=== PATIENT | male | born 1950 | race Caucasian/White ===

== ENCOUNTER 2017-01-24 23:12 | Inpatient (IN) | payer OTHER ==
[~2017-01-24] VITALS: Ht 175.3 cm; Wt 107.2 kg
[2017-01-24 23:51] LABS: BASO % 0.3 %; BASO ABS # 0.03 K/uL (0-0.2); COMPLETE YES; EOS % 5.6 %; HEMATOCRIT 41.9 % (42-52); IG% 0.4 %; LYMPH % 17.5 %; LYMPH ABS # 1.76 K/uL (1.2-3.4); MEAN CELL VOLUME 86.7 fL (80-100); MEAN CORPUSCULAR HGB CONC 33.4 g/dl (32-36); MONO % 7.3 %; NEUT % 68.9 %; PLATELET COUNT 208 K/uL (130-400); RED BLOOD COUNT 4.83 M/uL (4.7-6.1); WHITE BLOOD COUNT 10.05 K/uL (4.8-10.8)
[2017-01-25] MEDS ORDERED: ASPIRIN 81 MG CHEW PO STA (00:07)
[2017-01-25 00:09] LABS: ALT/SGPT 54 U/L (12-78); BLOOD UREA NITROGEN 24 mg/dl (7-18); BUN/CREATININE RATIO 16.3 (10-20); CALCIUM 9.2 mg/dl (8.5-10.1); CARBON DIOXIDE 28 mmol/L (21-32); CHLORIDE 103 mmol/L (98-107); GLUCOSE 204 mg/dl (70-99); MAGNESIUM 1.9 mg/dl (1.8-2.4); POTASSIUM 3.7 mmol/L (3.5-5.1); SODIUM 138 mmol/L (136-145)
[2017-01-25 00:12] LABS: ALKALINE PHOSPHATASE 70 U/L (45-117); AST/SGOT 34 U/L (15-37); CKMB/CK RATIO 1.2 (0-3.0)
[2017-01-25] MEDS ORDERED: SITA50TA5 PO (01:07)
[2017-01-25] MEDS ORDERED: NTRGSL/4 UT (01:08)
[2017-01-25] MEDS ORDERED: LEVO50TA6 PO (01:09)
--- NOTE | 2017-01-25 01:09 | EMERGENCY ROOM VISIT NOTE ---
ED Visit Note First contact with patient: 23:33 Agree with viv, likely CVA, not tpa candidate at this time; asa given; [facility] Current/Historical Medications Scheduled Sitagliptin-Metformin Hcl (Janumet), 50-500 MG PO DAILY Vital Signs Date Time Temp Pulse Resp B/P (MAP) Pulse Ox O2 Delivery O2 Flow Rate FiO2 01/25/17 00:05 95 Room Air 01/24/17 23:45 71 01/24/17 23:19 36.8 80 22 136/78 94 Room Air Laboratory Results 01/24/17 23:37 Red Blood Count 4.83, Mean Corpuscular Volume 86.7, Mean Corpuscular Hemoglobin 29.0, Mean Corpuscular Hemoglobin Concent 33.4, Mean Platelet Volume 12.0, Neutrophils (%) (Auto) 68.9, Lymphocytes (%) (Auto) 17.5, Monocytes (%) (Auto) 7.3, Eosinophils (%) (Auto) 5.6, Basophils (%) (Auto) 0.3, Neutrophils # (Auto) 6.93, Lymphocytes # (Auto) 1.76, Monocytes # (Auto) 0.73, Eosinophils # (Auto) 0.56, Basophils # (Auto) 0.03 01/24/17 23:37 Test 01/24/17 23:37 White Blood Count 10.05 K/uL (4.8-10.8) Red Blood Count 4.83 M/uL (4.7-6.1) Hemoglobin 14.0 g/dL (14.0-18.0) Hematocrit 41.9 % (42-52) Mean Corpuscular Volume 86.7 fL (80-100) Mean Corpuscular Hemoglobin 29.0 pg (25-34) Mean Corpuscular Hemoglobin Concent 33.4 g/dl (32-36) Platelet Count 208 K/uL (130-400) Mean Platelet Volume 12.0 fL (7.4-10.4) Neutrophils (%) (Auto) 68.9 % Lymphocytes (%) (Auto) 17.5 % Monocytes (%) (Auto) 7.3 % Eosinophils (%) (Auto) 5.6 % Basophils (%) (Auto) 0.3 % Neutrophils # (Auto) 6.93 K/uL (1.4-6.5) Lymphocytes # (Auto) 1.76 K/uL (1.2-3.4) Monocytes # (Auto) 0.73 K/uL (0.11-0.59) Eosinophils # (Auto) 0.56 K/uL (0-0.5) Basophils # (Auto) 0.03 K/uL (0-0.2) RDW Standard Deviation 42.8 fL (36.4-46.3) RDW Coefficient of Variation 13.5 % (11.5-14.5) Immature Granulocyte % (Auto) 0.4 % Immature Granulocyte # (Auto) 0.04 K/uL (0.00-0.02) Anion Gap 7.0 mmol/L (3-11) Est Creatinine Clear Calc Drug Dose 60.1 ml/min Estimated GFR () 55.8 Estimated GFR (Non- 48.2 BUN/Creatinine Ratio 16.3 (10-20) Calcium Level 9.2 mg/dl (8.5-10.1) Magnesium Level 1.9 mg/dl (1.8-2.4) Total Bilirubin 0.3 mg/dl (0.2-1) Direct Bilirubin < 0.1 mg/dl (0-0.2) Aspartate Amino Transf (AST/SGOT) 34 U/L (15-37) Alanine Aminotransferase (ALT/SGPT) 54 U/L (12-78) Alkaline Phosphatase 70 U/L (45-117) Total Creatine Kinase 115 U/L (39-308) Creatine Kinase MB 1.4 ng/ml (0.5-3.6) Creatine Kinase MB Ratio 1.2 (0-3.0) Troponin I < 0.015 ng/ml (0-0.045) Total Protein 7.3 gm/dl (6.4-8.2) Albumin 3.5 gm/dl (3.4-5.0) Lipase 386 U/L (73-393) Medications Administered Medications (Trade) Dose Ordered Sig/Elli Route Start Time Stop Time Status Last Admin Dose Admin Aspirin (Aspirin Chew) 324 mg NOW STAT PO 01/25/17 00:07 01/25/17 00:08 DC 01/25/17 00:36 324 MG Departure Information Referrals No Doctor, Assigned (PCP) Patient Instructions My [facility]
[2017-01-25] MEDS ORDERED: LITH300T2 PO (01:10)
[2017-01-25] MEDS ORDERED: SERT-234 PO (01:12)
[2017-01-25] MEDS ORDERED: [UNRECOGNIZED DRUG - CODE] PO (01:13)
[2017-01-25] MEDS ORDERED: ALPR0.25 PO (01:15)
[2017-01-25] MEDS ORDERED: MOME6000 NAE (01:16)
[2017-01-25] MEDS ORDERED: TPRSR/25 PO (01:17)
--- NOTE | 2017-01-25 01:40 | EMERGENCY ROOM VISIT NOTE ---
History First contact with patient: 23:33 Chief Complaint: NEURO SYMPTOMS Stated Complaint: NUMBNESS ARM/WRIST/FINGERS, HISTORY OF A FIB History of Present Illness The patient is a 66 year old male who presents to the Emergency Room with complaints of left-sided facial tingling and left arm tingling for the past 3 days steadily getting worse. Patient states in the past month she's had intermittent episodes of his A. fib is not currently on anticoagulation as in the ablation within the past year. Patient is unsure exactly when he had his ablation. He follows with cardiology back in [place]. He is here for the football game. Patient states he's had some intermittent chest pain over the past month. Nothing today. Patient denies localized weakness, dyspnea, abdominal pain, leg pain or swelling, dysarthria. No history of CVA in the past. No history of heart failure in the past. Review of Systems See HPI for pertinent positives & negatives. A total of 10 systems reviewed and were otherwise negative. Past Medical/Surgical History A. fib, HTN, DM2, HLP, Mood Disorder Social History Smoking Status: Never Smoker Smokeless Tobacco Use: No Drug Use: none Current/Historical Medications Scheduled Levothyroxine Sodium (Levothyroxine Sodium), 50 MCG PO DAILY Bergen Carbonate (Bergen Carbonate), 300 MG PO BID Nitroglycerin (Nitrostat), 0.4 MG UT PRN Sertraline (Zoloft), 150 MG PO DAILY Sitagliptin-Metformin Hcl (Janumet), 50-500 MG PO DAILY Scheduled PRN Diltiazem Hcl Coated Beads (Matzim La), 180 MG PO DAILY PRN for A FIB Physical Exam Vital Signs Date Time Temp Pulse Resp B/P (MAP) Pulse Ox O2 Delivery O2 Flow Rate FiO2 01/25/17 00:05 95 Room Air 01/24/17 23:45 71 01/24/17 23:19 36.8 80 22 136/78 94 Room Air Physical Exam VITALS: Vitals are noted on the nurse's note and reviewed by myself. Vital signs stable. GENERAL: White male following commands without difficulties, in no acute distress, nondiaphoretic, well-developed well-nourished. SKIN: The skin was without rashes, erythema, edema, or bruising. There is no tenting of the skin. Capillary reflex less than 2 seconds. HEAD: Normocephalic atraumatic. EARS: External auditory canals clear, tympanic membranes pearly moran without erythema or effusion bilaterally. EYES: Pupils equal round and reactive to light and accommodation. Conjunctivae without injection, sclerae without icterus. Extraocular movements intact. NOSE: Patent, turbinates without inflammation or discharge. MOUTH: Mucous membranes moist. Pharynx without erythema or exudate. Uvula midline. Airway patent. Tongue does not deviate. NECK: Supple without nuchal rigidity. No lymphadenopathy. No thyromegaly. Cervical spine is nontender. No JVD. HEART: Regular rate and rhythm without murmurs gallops or rubs. LUNGS: Clear to auscultation bilaterally without wheezes, rales or rhonchi. No dullness to percussion. No retractions or accessory muscle use. ABDOMEN: Positive bowel sounds x 4. Normal tympanic percussion. Soft, nontender, without masses or organomegaly. Winn sign negative. No guarding or rebound tenderness. MUSCULOSKELETAL: No muscle atrophy, erythema, or edema noted. NEURO: Patient was alert and oriented to person place and time. Normal sensation to light and sharp touch. No focal neurological deficits. Cranial nerves II through XII grossly intact. No pronator drift. Cerebellar exam intact Medical Decision & Procedures Laboratory Results 01/24/17 23:37 Red Blood Count 4.83, Mean Corpuscular Volume 86.7, Mean Corpuscular Hemoglobin 29.0, Mean Corpuscular Hemoglobin Concent 33.4, Mean Platelet Volume 12.0, Neutrophils (%) (Auto) 68.9, Lymphocytes (%) (Auto) 17.5, Monocytes (%) (Auto) 7.3, Eosinophils (%) (Auto) 5.6, Basophils (%) (Auto) 0.3, Neutrophils # (Auto) 6.93, Lymphocytes # (Auto) 1.76, Monocytes # (Auto) 0.73, Eosinophils # (Auto) 0.56, Basophils # (Auto) 0.03 01/24/17 23:37 Test 01/24/17 23:37 White Blood Count 10.05 K/uL (4.8-10.8) Red Blood Count 4.83 M/uL (4.7-6.1) Hemoglobin 14.0 g/dL (14.0-18.0) Hematocrit 41.9 % (42-52) Mean Corpuscular Volume 86.7 fL (80-100) Mean Corpuscular Hemoglobin 29.0 pg (25-34) Mean Corpuscular Hemoglobin Concent 33.4 g/dl (32-36) Platelet Count 208 K/uL (130-400) Mean Platelet Volume 12.0 fL (7.4-10.4) Neutrophils (%) (Auto) 68.9 % Lymphocytes (%) (Auto) 17.5 % Monocytes (%) (Auto) 7.3 % Eosinophils (%) (Auto) 5.6 % Basophils (%) (Auto) 0.3 % Neutrophils # (Auto) 6.93 K/uL (1.4-6.5) Lymphocytes # (Auto) 1.76 K/uL (1.2-3.4) Monocytes # (Auto) 0.73 K/uL (0.11-0.59) Eosinophils # (Auto) 0.56 K/uL (0-0.5) Basophils # (Auto) 0.03 K/uL (0-0.2) RDW Standard Deviation 42.8 fL (36.4-46.3) RDW Coefficient of Variation 13.5 % (11.5-14.5) Immature Granulocyte % (Auto) 0.4 % Immature Granulocyte # (Auto) 0.04 K/uL (0.00-0.02) Anion Gap 7.0 mmol/L (3-11) Est Creatinine Clear Calc Drug Dose 60.1 ml/min Estimated GFR () 55.8 Estimated GFR (Non- 48.2 BUN/Creatinine Ratio 16.3 (10-20) Calcium Level 9.2 mg/dl (8.5-10.1) Magnesium Level 1.9 mg/dl (1.8-2.4) Total Bilirubin 0.3 mg/dl (0.2-1) Direct Bilirubin < 0.1 mg/dl (0-0.2) Aspartate Amino Transf (AST/SGOT) 34 U/L (15-37) Alanine Aminotransferase (ALT/SGPT) 54 U/L (12-78) Alkaline Phosphatase 70 U/L (45-117) Total Creatine Kinase 115 U/L (39-308) Creatine Kinase MB 1.4 ng/ml (0.5-3.6) Creatine Kinase MB Ratio 1.2 (0-3.0) Troponin I < 0.015 ng/ml (0-0.045) Total Protein 7.3 gm/dl (6.4-8.2) Albumin 3.5 gm/dl (3.4-5.0) Lipase 386 U/L (73-393) Medications Administered Medications (Trade) Dose Ordered Sig/Elli Route Start Time Stop Time Status Last Admin Dose Admin Aspirin (Aspirin Chew) 324 mg NOW STAT PO 01/25/17 00:07 01/25/17 00:08 DC 01/25/17 00:36 324 MG ED Course Prior records/ancillary studies reviewed. Triage Nursing notes reviewed. Additional history obtained from friend The patient's history was concerning for left arm tingling and facial tingling Differential diagnosis: Etiologies such as CVA, electrolyte abnormality, neuropathy, cardiac ischemia, aortic dissection, pulmonary embolism, pneumonia, pneumothorax, musculoskeletal , infections, pericarditis, myocarditis, esophageal rupture, gastrointestinal, as well as others were entertained. Physical examination: As above. ER treatment provided: Aspirin On reassessment the patient felt better. Diagnostic interpretation by me: The electrocardiogram was normal sinus, normal intervals, ST depression in the anterolateral leads, rate 68. Impression normal sinus rhythm with ST depression in the anterolateral leads interpreted by myself. The labs revealed negative troponin. Creatinine 1.5. Hyperglycemia without DKA Imaging studies: Chest x-ray as above CT HEAD: No intracranial hemorrhage. Ischemic focus in the right thalamus of uncertain chronicity. MRI can further assess as warranted. Involutional changes. Mild sinus mucosal thickening and debris Radiologist: Smooth Newell M.D. Consultation: A consultation was placed with the hospitalist, Dr. Ridley's resident. The case was discussed and diagnostics were reviewed. The patient was evaluated in the ER for further treatment. Exam and history are concerning for possible CVA and abnormal EKG. Patient was started on aspirin. He will be evaluated by medicine. He was currently neurovascularly and neurologically intact. His NIH score is 0. His symptoms have been greater than 3 days. He is not a candidate for current treatment. I did attempt to obtain the patient's records from his hospital back in [facility] with no success. The executive legal secretary left a message on the answering machine with medical records. Patient is agreeable to treatment plan of admission. By the evaluation outlined above emergent etiologies such as aortic dissection , pulmonary embolism, pneumonia, pneumothorax, infections, pericarditis, myocarditis, gastrointestinal, as well as others were deemed relatively unlikely. The pt informed about the findings as listed above. All questions were answered and pleased with the treatment. Case reviewed with my attending who also saw this patient. Medical Decision as above Head Trauma GCS Score: 15 Medication Reconcilliation Current Medication List: was personally reviewed by me Blood Pressure Screening Patient's blood pressure: Normal blood pressure Impression Primary Impression: CVA (cerebral vascular accident) Additional Impressions: Abnormal EKG Tingling Departure Information Dispostion Being Evaluated By Hospitalist Condition FAIR Referrals No Doctor, Assigned (PCP) Patient Instructions My [facility] Time Last Known Well patient symptoms have been ongoing for greater than 3 days. Stroke t-PA Criteria Reviewed Does NOT meet criteria for t-PA Reason t-PA Not Given Treatment not indicated Strict Exclusion Criteria Normal neurologic examination Problem Qualifiers Primary Impression: CVA (cerebral vascular accident) CVA mechanism: unspecified Qualified Codes: I63.9 - Cerebral infarction, unspecified
[2017-01-25] MEDS ORDERED: ACETAMINOPHEN 325 MG TAB PO PRN (01:45)
[2017-01-25] MEDS ORDERED: ONDANSETRON INJ 2 MG/ML 2 ML VIAL IV PRN (01:45)
[2017-01-25] MEDS ORDERED: POLYETHYLENE (MIRALAX) 17 GM PACK PO PRN (01:45)
[2017-01-25] MEDS ORDERED: PHARMACIST DISCHARGE MED REC CONSULT PRN (01:45)
--- NOTE | 2017-01-25 02:00 | History and Physical ---
History & Physical Date & Time of Service: Jan 25, 2017 at 01:55 Chief Complaint: Numbness Arm/Wrist/Fingers, History Of A Fib Primary Care Physician: No Doctor, Assigned History of Present Illness Source: patient, hospital records 66-year-old male who is from [place] currently visiting [place] for the football game this weekend presented to the ER with complaints of left- sided numbness which started about 3 days ago. The patient has a history of coronary artery disease status post cardiac catheterization with no stents, atrial fibrillation status post ablation, bipolar disorder, hypertension, diabetes, depression but he had not been taking any of his medications for the last few months. He stated that 3 days ago he noted numbness and tingling in his left arm especially in the wrist and the hand which has now worsened into a pins and needles sensation involving his entire arm, left leg involving his foot and also left side of his face. Denies any loss of strength, slurring of speech, blurry vision. He recently started using his Janumet 3 days ago after he developed the symptoms. Denies any history of trauma, history of CVA. Past Medical/Surgical History Coronary artery disease status post cardiac catheterization with no stents. Atrial fibrillation status post ablation. Diabetes mellitus Hypothyroidism Hypertension Depression Bipolar disorder Family History Noncontributory Social History Smoking Status: Never Smoker Smokeless Tobacco Use: No Drug Use: none Occupational Status: employed Immunizations History of Influenza Vaccine: Unknown History of Tetanus Vaccine?: Unknown History of Pneumococcal: Unknown History of Hepatitis B Vaccine: Unknown Multi-Drug Resistant Organisms History of MDRO: No Allergies Coded Allergies: No Known Allergies (Unverified , 01/25/17) Home Medications Scheduled Levothyroxine Sodium (Levothyroxine Sodium), 50 MCG PO DAILY Doerun Carbonate (Doerun Carbonate), 300 MG PO BID Metoprolol Succinate (Metoprolol Succinate ER), 25 MG PO DAILY Nitroglycerin (Nitrostat), 0.4 MG UT PRN Sertraline (Zoloft), 150 MG PO DAILY Sitagliptin-Metformin Hcl (Janumet), 50-500 MG PO DAILY Scheduled PRN Alprazolam (Xanax), 0.25 MG PO BID PRN for Anxiety Diltiazem Hcl Coated Beads (Matzim La), 180 MG PO DAILY PRN for A FIB Mometasone Furoate (Nasal) (Mometasone Furoate), 1 SPRAY DEIDRE BID PRN for ALLERGIC REACTION Review of Systems Constitutional: No fever, No chills Eyes: No worsening of vision ENT: No hearing loss Respiratory: No cough Cardiovascular: No chest pain Abdomen: No pain, No nausea, No vomiting Musculoskeletal: No joint pain Genitourinary - Male: No hematuria, No dysuria Neurologic: + numbness/tingling (left side of arm and leg), No paralysis Psychiatric: No depression symptoms Integumentary: No rash Physical Exam Vital Signs Date Time Temp Pulse Resp B/P (MAP) Pulse Ox O2 Delivery O2 Flow Rate FiO2 01/25/17 01:31 64 18 154/88 01/25/17 01:01 67 20 138/73 01/25/17 00:47 67 19 146/75 95 Room Air 01/25/17 00:05 95 Room Air 01/24/17 23:45 71 01/24/17 23:19 36.8 80 22 136/78 94 Room Air General Appearance: no apparent distress ENT: hearing grossly normal Neck: supple Respiratory/Chest: lungs clear, normal breath sounds, no respiratory distress, no accessory muscle use Cardiovascular: regular rate, rhythm Abdomen/GI: normal bowel sounds, non tender, soft Extremities/Musculoskelatal: no pedal edema Neurologic/Psych: medicaid business analyst II-XII nml as tested, alert, normal mood/affect, oriented x 3, + sensory deficit (pins and needles sensation along left arm and left leg) Diagnostics Laboratory Results Results Past 24 Hours Test 01/24/17 23:37 Range/Units White Blood Count 10.05 4.8-10.8 K/uL Red Blood Count 4.83 4.7-6.1 M/uL Hemoglobin 14.0 14.0-18.0 g/dL Hematocrit 41.9 42-52 % Mean Corpuscular Volume 86.7 80-100 fL Mean Corpuscular Hemoglobin 29.0 25-34 pg Mean Corpuscular Hemoglobin Concent 33.4 32-36 g/dl Platelet Count 208 130-400 K/uL Mean Platelet Volume 12.0 7.4-10.4 fL Neutrophils (%) (Auto) 68.9 % Lymphocytes (%) (Auto) 17.5 % Monocytes (%) (Auto) 7.3 % Eosinophils (%) (Auto) 5.6 % Basophils (%) (Auto) 0.3 % Neutrophils # (Auto) 6.93 1.4-6.5 K/uL Lymphocytes # (Auto) 1.76 1.2-3.4 K/uL Monocytes # (Auto) 0.73 0.11-0.59 K/uL Eosinophils # (Auto) 0.56 0-0.5 K/uL Basophils # (Auto) 0.03 0-0.2 K/uL RDW Standard Deviation 42.8 36.4-46.3 fL RDW Coefficient of Variation 13.5 11.5-14.5 % Immature Granulocyte % (Auto) 0.4 % Immature Granulocyte # (Auto) 0.04 0.00-0.02 K/uL Sodium Level 138 136-145 mmol/L Potassium Level 3.7 3.5-5.1 mmol/L Chloride Level 103 98-107 mmol/L Carbon Dioxide Level 28 21-32 mmol/L Anion Gap 7.0 3-11 mmol/L Blood Urea Nitrogen 24 7-18 mg/dl Creatinine 1.50 0.60-1.40 mg/dl Est Creatinine Clear Calc Drug Dose 60.1 ml/min Estimated GFR () 55.8 Estimated GFR (Non- 48.2 BUN/Creatinine Ratio 16.3 10-20 Random Glucose 204 70-99 mg/dl Calcium Level 9.2 8.5-10.1 mg/dl Magnesium Level 1.9 1.8-2.4 mg/dl Total Bilirubin 0.3 0.2-1 mg/dl Direct Bilirubin < 0.1 0-0.2 mg/dl Aspartate Amino Transf (AST/SGOT) 34 15-37 U/L Alanine Aminotransferase (ALT/SGPT) 54 12-78 U/L Alkaline Phosphatase 70 45-117 U/L Total Creatine Kinase 115 39-308 U/L Creatine Kinase MB 1.4 0.5-3.6 ng/ml Creatine Kinase MB Ratio 1.2 0-3.0 Troponin I < 0.015 0-0.045 ng/ml Total Protein 7.3 6.4-8.2 gm/dl Albumin 3.5 3.4-5.0 gm/dl Lipase 386 73-393 U/L Diagnostic Radiology CT head concerning for ischemic focus in the right thalamus of uncertain chronicity Impression Assessment and Plan 66-year-old male presented to the ER with complaints of left-sided numbness which started about 3 days ago. The patient has a history of coronary artery disease status post cardiac catheterization with no stents, atrial fibrillation status post ablation, bipolar disorder, hypertension, diabetes, depression but he had not been taking any of his medications for the last few months. Stroke: Patient has a history of atrial fibrillation status post ablation, diabetes and hypertension and has been noncompliant with his medication - CT head concerning for ischemic focus in the right thalamus of uncertain chronicity - MRI brain, MRA head and neck ordered - Had received 324 mg of aspirin in the ER - Lipid panel and hemoglobin A1c ordered - Aspirin 81 mg and statin - Neurology consult Acute kidney injury: Likely from dehydration Creatinine at 1.5, baseline unknown - Continue IV fluids Atrial fibrillation: Status post ablation - Noncompliant with medications - Continue metoprolol Hypertension: - Noncompliant with lisinopril and metoprolol - Restarted metoprolol Diabetes mellitus: - Hemoglobin A1c pending - Hold Janumet -Insulin sliding scale Bipolar disorder: - Was supposed to be on lithium which he had not been using for several months - Can be restarted as an outpatient Full code DVT prophylaxis: SCDs Disposition: Admitted to telemetry Attending Addendum: I have physically seen and examined this patient, have directed the resident's medical activities, and agree with the H&P as noted above with the following exceptions as noted. The patient is awake, alert and oriented 3, well-developed and well-nourished , normocephalic and atraumatic, lying in bed and in no acute distress. HEENT--PERRL, EOMI, mucous membranes and oropharynx dry. Neck--supple, no JVD or bruits, thyroid normal, trachea midline, no adenopathy. Heart--normal S1 and S2, no extra beats, no murmurs, rubs or gallops. Lungs--clear bilaterally with good air movement, no respiratory distress, no accessory muscle use. Abdomen--normal bowel sounds and soft, nontender and nondistended, no hernias or masses, no organomegaly. Extremities--no cyanosis, clubbing or edema. There are good distal pulses b/l. Dermatologic--normal skin turgor, normal color, warm and dry, no abnormal lymph nodes, no rash. Neurologic--cranial nerves II through XII grossly intact. Then the needles sensation left arm and leg when stimulated. Rheumatologic--normal range of motion, nontender, muscles and joints. Psychiatric--normal affect. Assessment and Plan: Right thalamic CVA on CT of head/left arm and leg abnormal sensation-- Order MRI brain combo, MRA neck combo, MRA of head without contrast. Aspirin 81 mg by mouth every morning. Check a fasting lipid profile and hemoglobin A1c. Place on high-dose Lipitor 80 mg by mouth every morning. For now allow mildly permissive hypertension to systolic 140-150, as CVA likely took place 3 days ago when symptoms began, but extent needs to be confirmed on MRI. Atrial fibrillation/hypertension-- Resume metoprolol succinate 25 mg by mouth daily. Hold Cardizem CD 180 and lisinopril. Patient is a known history of noncompliance with medications. Diabetes mellitus-- Place on Accu-Cheks before meals and at bedtime with NovoLog coverage per scale. Check a hemoglobin A1c. Hold Janumet. Metformin should not be resumed as creatinine is 1.4 or less, it is presently 1.5. Level of Care Telemetry Advanced Directives Existing Advance Directive: No Existing Living Will: No Existing Power of Foil Wrapper: No Resuscitation Status FULL RESUSCITATION VTE Prophylaxis Risk Level: Moderate Given or contraindicated: SCD's Social Service Consult None Apply Resident Tracking Resident Involvement: Resident Care Provided Care Provided: Adult Hospital Medicine
[2017-01-25] MEDS ORDERED: LORAZEPAM 2 MG/ML 1 ML VIAL IV STA (02:43)
[2017-01-25 04:01] VITALS: BP 153/93; PULSE 66; TEMP 36.3; O2SAT 98; Ht 175.3 cm; Wt 107.2 kg
[2017-01-25] MEDS ORDERED: SODIUM CHLORIDE 0.9% 1000ML 1,000 ML IV SCH (04:45)
[2017-01-25 05:49] LABS: ESTIMATED AVERAGE GLUCOSE 134 mg/dl; HA1C FLAG Normal (Normal)
--- NOTE | 2017-01-25 06:33 | DIAGNOSTIC IMAGING REPORT ---
HEAD WITHOUT CONTRAST (CT) CLINICAL HISTORY: 66 years-old Male with tingling left side. Acute left-sided numbness. Initial exam. TECHNIQUE: Multiple axial CT images of the head were obtained without contrast. A dose lowering technique was utilized adhering to the principles of ALARA. CT DOSE: 537.48 mGy.cm COMPARISON: None. FINDINGS: No acute intracranial hemorrhage, midline shift, mass, large territorial ischemia or abnormal extra-axial collection. There is a focal ill-defined area of low-attenuation, 7 x 6 mm within the right thalamus seen on image 13 of the axial series. There is mild cerebral atrophy. The calvarium is intact. Moderate polypoid mucosal disease involves the ethmoid sinuses. There is mild to moderate sphenoid sinus disease as well. The mastoid air cells and middle ear cavities are clear. Soft tissues and orbits are unremarkable. IMPRESSION: 1. No acute intracranial hemorrhage, midline shift or large territorial ischemia. 2. Focal 7 x 6 mm area of ill-defined low-attenuation within the right thalamus is compatible with age indeterminate lacunar infarction. Correlate with scheduled brain MRI. The above report was generated using voice recognition software. It may contain grammatical, syntax or spelling errors. Electronically signed by: Osito Guillen M.D. 01/25/2017 6:32 AM Dictated Date/Time: 01/25/2017 6:29 AM
[2017-01-25] MEDS ORDERED: LORAZEPAM 2 MG/ML 1 ML VIAL IV SCH (06:45)
[2017-01-25] MEDS: INSULIN ASPART 100 UNITS/ML 3 ML PEN SC SCH ×2 (07:00→11:00)
--- NOTE | 2017-01-25 07:13 | DIAGNOSTIC IMAGING REPORT ---
CHEST ONE VIEW PORTABLE HISTORY: 66 years-old Male CHEST PAIN acute chest pain. Initial exam. COMPARISON: None available. TECHNIQUE: Portable upright AP view of the chest FINDINGS: Cardiac silhouette is moderately enlarged. There is no pneumothorax, pleural effusion or focal airspace consolidation. No overt pulmonary edema. Bones of the chest are grossly intact. IMPRESSION: Cardiomegaly without acute cardiopulmonary process. The above report was generated using voice recognition software. It may contain grammatical, syntax or spelling errors. Electronically signed by: Osito Guillen M.D. 01/25/2017 7:12 AM Dictated Date/Time: 01/25/2017 7:11 AM
[2017-01-25 08:00] VITALS: O2SAT 98
[2017-01-25] MEDS ORDERED: PNEUMOCOCCAL POLYSACCHARIDES 25 MCG/0.5 ML VIAL/SYR IM. ONE (08:00)
[2017-01-25] MEDS ORDERED: PNEUMOCOCCAL ADMINISTRATION CHARGE ONE (08:00)
--- NOTE | 2017-01-25 08:19 | DIAGNOSTIC IMAGING REPORT ---
MR ANGIOGRAPHY OF THE [place] OF [place] NO CONTRAST CLINICAL HISTORY: Stroke. Left-sided body numbness. COMPARISON STUDY: None. A 3-D [id number] MR angiographic sequence of the [place] was performed. Both the source and projection images were reviewed. The study is mildly limited from a technical standpoint, presumably secondary to patient motion artifact. There is no evidence of major intracranial branch occlusion. There is no evidence of intracranial stenosis. There are no lesions suspicious for aneurysm. IMPRESSION: Unremarkable MR angiography of the [place]. Electronically signed by: Jesu Mathews M.D. 01/25/2017 8:17 AM Dictated Date/Time: 01/25/2017 8:15 AM
--- NOTE | 2017-01-25 08:22 | DIAGNOSTIC IMAGING REPORT ---
MRA OF THE NECK WITH AND WITHOUT CONTRAST CLINICAL HISTORY: Stroke. COMPARISON STUDY: None. TECHNIQUE: Unenhanced and contrast-enhanced MRA of the neck was performed. Injection of 10.5 mL of Gadavist IV was uneventful. NASCET criteria were utilized to estimate the degree of carotid stenosis. FINDINGS: The bilateral common carotid, internal carotid and vertebral arteries are patent. No stenosis is identified within these vessels. There is no evidence for dissection within the major vasculature of the neck. IMPRESSION: Unremarkable MRA of the neck. Electronically signed by: Brendan Stroud M.D. 01/25/2017 8:20 AM Dictated Date/Time: 01/25/2017 8:16 AM
[2017-01-25] MEDS ORDERED: METOPROLOL SUCC 25MG EXT REL TAB PO SCH (09:00)
[2017-01-25] MEDS ORDERED: ASPIRIN 81 MG CHEW PO SCH (09:00)
[2017-01-25] MEDS ORDERED: ATORVASTATIN 40 MG TAB PO SCH ×2 (09:00)
[2017-01-25 09:39] VITALS: BP 169/91; PULSE 64; TEMP 36.5; O2SAT 95
[2017-01-25 10:04] LABS: CHOLESTEROL/HDL RATIO 9.5
--- NOTE | 2017-01-25 10:12 | Neurology Consultation ---
Neurology Consultation Date of Consultation: Jan 25, 2017. Attending Physician: Herman Betancur D.O. Primary Care Physician: No Doctor, Assigned Reason for Consultation: Stroke History of Present Illness Source: patient, hospital records The patient is a 66-year-old left-handed male who is visiting from out of town who complains of numbness and tingling affecting the entire left side of his body including the face, arm, and leg. He also complains of an associated feeling of left facial weakness and some clumsiness with the left hand. The symptoms began 4-5 days ago and had prominently affected the left hand initially. He had initially attributed the symptoms to possibly carpal tunnel syndrome. 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 He denies any associated change in speech. Past medical history is notable for atrial fibrillation status post ablation, type 2 diabetes mellitus, hypertension, and sleep apnea. A serum blood glucose was 204 at the time of presentation. Electrocardiogram reveals a sinus rhythm, [address] of the head was negative for hemorrhage or other definitive acute process. However, there is evidence of an age indeterminate right thalamic lacunar stroke. I reviewed both the images and radiologist's interpretation of this test and agree. The patient has completed a follow-up MRI of the brain and MRA of the head and neck. Only the images from the MR angiography are currently available at this time. There is no evidence of a vascular stenosis or other significant lesion on these tests. I discussed the issue with the radiology department who informed me that the images from the brain MRI are currently being processed. Past Medical/Surgical History Medical Problems: (1) Abnormal EKG Status: Acute (2) CVA (cerebral vascular accident) Status: Acute (3) Tingling Status: Acute Family History There is no pertinent family history that would place this elderly patient at increased risk for additional neurological diagnoses or complications in the context of his current acute illness. Social History Smokeless Tobacco Use: No Drug Use: none Occupation Status: employed Allergies Coded Allergies: No Known Allergies (Unverified , 01/25/17) Current Inpatient Medications Current Inpatient Medications Medications (Trade) Dose Ordered Sig/Elli Route Start Time Stop Time Status Last Admin Dose Admin Miscellaneous Information (Pharmacist Discharge Med Rec Consult) 1 ea UD PRN N/A 01/25/17 01:45 02/24/17 01:44 Acetaminophen (Tylenol Tab) 650 mg Q4H PRN PO 01/25/17 01:45 02/24/17 01:44 Ondansetron HCl (Zofran Inj) 4 mg Q6H PRN IV 01/25/17 01:45 02/24/17 01:44 Polyethylene (Miralax Powder Packet) 17 gm DAILY PRN PO 01/25/17 01:45 02/24/17 01:44 Metoprolol Succinate (Toprol Xl Tab) 25 mg DAILY PO 01/25/17 09:00 02/24/17 08:59 01/25/17 08:51 25 MG Sodium Chloride 1,000 ml @ 100 mls/hr Q10H IV 01/25/17 04:45 02/24/17 04:44 01/25/17 04:47 100 MLS/HR Aspirin (Aspirin Chew) 81 mg DAILY PO 01/25/17 09:00 02/24/17 08:59 01/25/17 08:51 81 MG Insulin Aspart (novoLOG ASPART) SLIDING SCALE G... 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 All other systems reviewed and are negative. Physical Exam Vital Signs (Past 24 Hrs): Date Time Temp Pulse Resp B/P (MAP) Pulse Ox O2 Delivery O2 Flow Rate FiO2 01/25/17 04:01 36.3 66 20 153/93 98 Room Air 01/25/17 03:14 57 16 161/85 96 Room Air 01/25/17 02:00 63 20 143/73 01/25/17 01:31 64 18 154/88 01/25/17 01:01 67 20 138/73 01/25/17 00:47 67 19 146/75 95 Room Air 01/25/17 00:05 95 Room Air 01/24/17 23:45 71 01/24/17 23:19 36.8 80 22 136/78 94 Room Air The patient is a well-developed, well-nourished, elderly male. He is sitting up comfortably in bed. He is alert and oriented to person place and time. Recent and remote memory intact. Attention and concentration normal. Exhibits a normal spontaneous speech pattern as well as an age-appropriate fund of knowledge and normal vocabulary. Visual wesley full to confrontation. Visual acuity normal. Pupils equal round reactive to light and accommodation. Eye movements normal. Facial sensation moderately reduced for the left upper, mid, and lower face. There is slight flattening of the left nasolabial fold. Hearing intact bilaterally. Palate elevates to midline. Shoulder shrug strength intact bilaterally. Tongue protrudes to midline. There is a left hemisensory deficit noted to light touch, temperature, and vibration affecting the face arm and leg as well as the thorax. Deep tendon reflexes are intact and symmetrical. The left plantar responses upgoing. Right plantar response downgoing. There is no dysdiadochokinesia or dysmetria with finger to nose bilaterally. There is mild dysmetria with heel to baires for the left, but not the right. I could not adequately visualize this patient's optic nerves or retina with direct ophthalmoscopic examination. Carotid pulses normal bilaterally, no bruits to auscultation. Gait and station not tested due to safety concerns. Muscle strength intact and symmetrical for the arms and legs proximally and distally. No wrist drop or loss of reporting specialist strength bilaterally. No foot drop. Muscle tone normal throughout. No atrophy. No abnormal movements observed. Laboratory Results Past 24 Hours: 01/24/17 23:37 Red Blood Count 4.83, Mean Corpuscular Volume 86.7, Mean Corpuscular Hemoglobin 29.0, Mean Corpuscular Hemoglobin Concent 33.4, Mean Platelet Volume 12.0, Neutrophils (%) (Auto) 68.9, Lymphocytes (%) (Auto) 17.5, Monocytes (%) (Auto) 7.3, Eosinophils (%) (Auto) 5.6, Basophils (%) (Auto) 0.3, Neutrophils # (Auto) 6.93, Lymphocytes # (Auto) 1.76, Monocytes # (Auto) 0.73, Eosinophils # (Auto) 0.56, Basophils # (Auto) 0.03 01/24/17 23:37 Test 01/24/17 23:07 01/24/17 23:37 01/25/17 09:11 Estimated Average Glucose 134 mg/dl Hemoglobin A1c 6.3 % (4.5-5.6) White Blood Count 10.05 K/uL (4.8-10.8) Red Blood Count 4.83 M/uL (4.7-6.1) Hemoglobin 14.0 g/dL (14.0-18.0) Hematocrit 41.9 % (42-52) Mean Corpuscular Volume 86.7 fL (80-100) Mean Corpuscular Hemoglobin 29.0 pg (25-34) Mean Corpuscular Hemoglobin Concent 33.4 g/dl (32-36) Platelet Count 208 K/uL (130-400) Mean Platelet Volume 12.0 fL (7.4-10.4) Neutrophils (%) (Auto) 68.9 % Lymphocytes (%) (Auto) 17.5 % Monocytes (%) (Auto) 7.3 % Eosinophils (%) (Auto) 5.6 % Basophils (%) (Auto) 0.3 % Neutrophils # (Auto) 6.93 K/uL (1.4-6.5) Lymphocytes # (Auto) 1.76 K/uL (1.2-3.4) Monocytes # (Auto) 0.73 K/uL (0.11-0.59) Eosinophils # (Auto) 0.56 K/uL (0-0.5) Basophils # (Auto) 0.03 K/uL (0-0.2) RDW Standard Deviation 42.8 fL (36.4-46.3) RDW Coefficient of Variation 13.5 % (11.5-14.5) Immature Granulocyte % (Auto) 0.4 % Immature Granulocyte # (Auto) 0.04 K/uL (0.00-0.02) Anion Gap 7.0 mmol/L (3-11) Est Creatinine Clear Calc Drug Dose 60.1 ml/min Estimated GFR () 55.8 Estimated GFR (Non- 48.2 BUN/Creatinine Ratio 16.3 (10-20) Calcium Level 9.2 mg/dl (8.5-10.1) Magnesium Level 1.9 mg/dl (1.8-2.4) Total Bilirubin 0.3 mg/dl (0.2-1) Direct Bilirubin < 0.1 mg/dl (0-0.2) Aspartate Amino Transf (AST/SGOT) 34 U/L (15-37) Alanine Aminotransferase (ALT/SGPT) 54 U/L (12-78) Alkaline Phosphatase 70 U/L (45-117) Total Creatine Kinase 115 U/L (39-308) Creatine Kinase MB 1.4 ng/ml (0.5-3.6) Creatine Kinase MB Ratio 1.2 (0-3.0) Total Protein 7.3 gm/dl (6.4-8.2) Albumin 3.5 gm/dl (3.4-5.0) Lipase 386 U/L (73-393) Impression This is a 66-year-old male who presents with a left hemisensory deficit and mild associated left facial weakness and dysmetria of the left lower extremity probably consistent with a subacute right thalamic/posterior limb of the internal capsule ischemic infarct or "sensory-motor lacunar stroke syndrome." Risk factors based on this patient's past medical history would include type 2 diabetes mellitus, hypertension, and hyperlipidemia. He also has a history of atrial fibrillation, status post ablation, currently not prescribed anticoagulation and I am thus unable to completely exclude a recent cardioembolic infarct. His recently completed EKG, however, suggests a normal sinus rhythm. Plan I will need to review the images of the brain MRI reportedly completed this morning. If this study was not completed, however, he will need to return to MRI for this additional study. (It appears as if only the MR angiography was done and I did contact radiology regarding this issue.) At this point, I think aspirin 81 mg per day is appropriate. However, if his brain MRI is potentially suggestive of a cardioembolic event then I think he should be offered anticoagulation. (He reports that he had been prescribed Xarelto prior to his cardiac ablation.) Please follow-up with results of transthoracic echocardiogram as well. Consultations with PT/OT/speech therapy This patient will need to follow-up with his usual physicians in the [place] area for ongoing management of his cardiovascular condition and risk factors. Addendum: I was able to review the images pertaining to the brain MRI completed this morning. There is an area of restricted diffusion within the right thalamus/posterior limb of the internal capsule. The corresponding ADC map is dark in this area. These findings are suggestive of an acute ischemic infarct. The radiologist's interpretation of this test is pending. After reviewing the brain MRI images, I believe aspirin 81 mg per day is appropriate. If additional testing appears to suggest cardioembolism in this case, then of course anticoagulation should be offered. Please contact me if I may be of further assistance.
--- NOTE | 2017-01-25 10:51 | DIAGNOSTIC IMAGING REPORT ---
BRAIN COMBO HISTORY: 66 years-old Male Stroke acute strokelike symptoms. Patient presents with left body numbness. Follow-up study. COMPARISON: CT head 01/24/2017, MRA head 01/25/2017. TECHNIQUE: Multiplanar multisequence MRI of the brain was obtained both with and without the use of 10.5 mL Gadavist. FINDINGS: Focal area of restricted diffusion within the right thalamus, 9 x 6 mm demonstrates increased T2 and FLAIR signal with T2 shine through on ADC map suggesting subacute lacunar infarction. No associated significant mass effect or edema. No hemorrhage. No additional infarctions identified. The midline structures including the corpus callosum, brainstem, optic chiasm, pituitary and peroneal glands are unremarkable the sagittal T1 sequence, however this sequence is moderately motion degraded. Mild degenerative changes of the upper cervical spine. Major flow voids at the skull base appear patent. No acute intracranial hemorrhage, midline shift or abnormal extra-axial collections. There are a few scattered punctate foci of increased T2/FLAIR signal within the subcortical and periventricular white matter of the cerebral hemispheres bilaterally suggesting minimal microvascular ischemic changes. No hydrocephalus. Orbits are symmetric. Moderate paranasal sinus disease is seen with polypoid 2.6 x 1.0 cm focus seen within the region of the right nasopharynx. Small right mastoid effusion. Mild frontal sinus disease on the left. No abnormal intra-axial or extra-axial enhancement identified. The post contrast axial T1 series is also motion degraded. IMPRESSION: 1. Small subacute lacunar infarction of the right thalamus, 9 x 6 mm without significant mass effect or edema. No hemorrhage or abnormal enhancement. 2. Minimal background chronic microvascular ischemic changes. 3. Moderate paranasal sinus disease with polypoid mucosal thickening within the region of the right nasopharynx. Correlate with direct visualization to exclude a nasopharyngeal polyp. 4. Trace right mastoid effusion. The above report was generated using voice recognition software. It may contain grammatical, syntax or spelling errors. Electronically signed by: Osito Guillen M.D. 01/25/2017 10:50 AM Dictated Date/Time: 01/25/2017 10:43 AM
[2017-01-25 11:37] VITALS: BP 138/82; PULSE 68; TEMP 36.4; O2SAT 97
[2017-01-25] MEDS ORDERED: ASPCH81 PO (12:11)
[2017-01-25] MEDS ORDERED: LPT40 PO (12:11)
--- NOTE | 2017-01-25 12:16 | Discharge Instructions ---
Discharge Instructions Date of Service Jan 25, 2017. Admission Reason for Admission: Stroke Like Symptoms Discharge Discharge Diagnosis / Problem: Acute CVA Discharge Goals Goal(s): Decrease discomfort, Improve function, Increase independence, Improve disease control, Learn about illness, Diagnostic testing, Prevent Disease Progression Activity Recommendations Activity Limitations: resume your previous activity Exercise/Sports Limitations: as tolerated . Instructions / Follow-Up Instructions / Follow-Up Patient to be discharged home Please note addition of cholesterol medication atorvastatin 80 mg tablet to take once daily and please take aspirin 81 mg tablet once daily as well Please resume all home medications Would recommend low cholesterol diet due to high LDL cholesterol If worsening weakness, trouble swallowing, numbness, visual changes, chest pain or shortness of breath please report to ER Follow up with your primary care provider in 1-2 weeks Risk Factors for Stroke: You can reduce your chances of stroke by working with your medical provider to adopt a healthy lifestyle. Some specific ways to lower your chance of stroke are: * If you are a smoker, now is the time to stop smoking cigarettes * If you are diabetic, improve the control of your blood sugars * Avoid excessive amounts of alcohol * Control high blood pressure * Lose weight if you are overweight * Be sure to lead an active lifestyle * Eat a healthy diet low in salt, cholesterol and fat You should know about other risk factors for stroke that you are unable to control. These include: * Age 55 years or older * Male gender * Certain racial groups: , or / * Family History of Stroke, Mini stroke or Heart Attack * Sickle Cell Disease Follow Up: It is important for you to keep your follow up appointments with your medical provider. Current Hospital Diet Patient's current hospital diet: Regular Diet Discharge Diet Recommended Diet: AHA Diet (Heart Healthy), Low Fat Diet Pending Studies Studies pending at discharge: no Laboratory Results Hemoglobin A1c Test 01/24/17 23:07 Range/Units Estimated Average Glucose 134 mg/dl Hemoglobin A1c 6.3 H 4.5-5.6 % Lipid Panel Test 01/25/17 09:11 Range/Units Triglycerides Level 148 0-150 mg/dl Cholesterol Level 333 H 0-200 mg/dl HDL Cholesterol 35 mg/dl Cholesterol/HDL Ratio 9.5 LDL Cholesterol, Calculated 268 mg/dl Medical Emergencies . Who to Call and When: Medical Emergencies: Call 911 immediately if you experience any of the following warning signs and symptoms of Stroke: * Sudden numbness or weakness of the face, arm or leg, especially on one side of the body * Sudden confusion, trouble speaking or understanding * Sudden trouble seeing in one or both eyes * Sudden trouble walking, dizziness, loss of balance or coordination * Sudden severe headache with no cause Do not delay calling 911 if you experience any warning signs or symptoms of a stroke. Delay in seeking medical attention may affect what treatments can be given to you. . Non-Emergent Contact Non-Emergency issues call your: Primary Care Provider Call Non-Emergent contact if: you have any medication questions . . "Provider Documentation" section prepared by Herman Betancur. . Stroke Core Measures Reason no t-PA for Stroke: Treatment not indicated Reason no antithrom by day 2: Treatment provided - N/A Reason no antithrom at D/C: Treatment provided - N/A Reason no statin at D/C: Treatment provided - N/A Reason no anticoag w/a fib: Treatment provided - N/A VTE Core Measure Inpt VTE Proph given/why not?: Other Anticoagulation, SCD's
[2017-01-25 12:20] VITALS: BP 138/82; PULSE 68; TEMP 36.4; O2SAT 97
--- NOTE | 2017-01-25 13:01 | Pharmacy Progress Note ---
Pharmacist Stroke Counseling Date of Service Jan 25, 2017. Scope Pharmacy has been consulted to provide medication discharge counseling for this patient admitted with ischemic stroke/hemorrhagic stroke/ transient ischemic attack as per the Pharmacist Discharge Counseling for Stroke Patients Protocol. Medications on Discharge New Medications: Aspirin (Aspirin Low Strength) 81 Mg Chew 81 MG PO DAILY, #30 TABS Atorvastatin (Atorvastatin Calcium) 40 Mg Tab 80 MG PO QAM, #30 TAB Continued Medications: Alprazolam (Xanax) 0.25 Mg Tab 0.25 MG PO BID PRN for Anxiety, TAB Diltiazem Hcl Coated Beads (Matzim La) 180 Mg Tab 180 MG PO DAILY PRN for A FIB Levothyroxine Sodium (Levothyroxine Sodium) 50 Mcg Tab 50 MCG PO DAILY [place] Carbonate ([place] Carbonate) 300 Mg Tab 300 MG PO BID, TAB Metoprolol Succinate (Metoprolol Succinate ER) 25 Mg Tabcr 25 MG PO DAILY Mometasone Furoate (Nasal) (Mometasone Furoate) 50 Mcg/Act Spr 1 SPRAY DEIDRE BID PRN for ALLERGIC REACTION Nitroglycerin (Nitrostat) 0.4 Mg Tab 0.4 MG UT PRN, BTL Sertraline (Zoloft) 100 Mg Tab 150 MG PO DAILY, TAB Sitagliptin-Metformin Hcl (Janumet) 1 Tab Tab 50-500 MG PO DAILY Action The above medications, specifically ones for stroke treatment/prophylaxis, have been reviewed in detail with the patient and/or patient order entry representative(s) prior to discharge. This includes indication, common adverse reactions, drug interactions, and medication administration. Medication counseling has been employed using the teach-back method to ensure understanding. Outcome The patient and/or patient order entry representative(s) have demonstrated understanding of the medications. Please note, they are aware that the pharmacist will call them within 72 hours post-discharge to confirm that the appropriate medications are being taken and answer any further medication related questions the patient might have at that time. Contact information Individual to be contacted: Kj Pascual Relationship to patient (if applicable): n/a Phone number: Best time to call: Afternoon on 01/28/17 Additional comments: n/a Thank you for allowing pharmacy to be involved in the care of this patient. Please call [phone] or [phone] with any additional questions
--- NOTE | 2017-01-25 14:55 | Discharge Summary ---
Discharge Summary Date of Service Jan 25, 2017. Discharge Summary Admission Date: Jan 25, 2017 at 02:42 Discharge Date: Jan 25, 2017 Discharge Disposition: Home Principal Diagnosis: Acute CVA Immunizations: Have You Had Influenza Vaccine: Unknown History of Tetanus Vaccine?: Unknown History of Pneumococcal: Unknown History of Hepatitis B Vaccine: Unknown Consultations: Neurology Medication Reconciliation New Medications: Aspirin (Aspirin Low Strength) 81 Mg Chew 81 MG PO DAILY, #30 TABS Atorvastatin (Atorvastatin Calcium) 40 Mg Tab 80 MG PO QAM, #30 TAB Continued Medications: Alprazolam (Xanax) 0.25 Mg Tab 0.25 MG PO BID PRN for Anxiety, TAB Diltiazem Hcl Coated Beads (Matzim La) 180 Mg Tab 180 MG PO DAILY PRN for A FIB Levothyroxine Sodium (Levothyroxine Sodium) 50 Mcg Tab 50 MCG PO DAILY [place] Carbonate ([place] Carbonate) 300 Mg Tab 300 MG PO BID, TAB Metoprolol Succinate (Metoprolol Succinate ER) 25 Mg Tabcr 25 MG PO DAILY Mometasone Furoate (Nasal) (Mometasone Furoate) 50 Mcg/Act Spr 1 SPRAY DEIDRE BID PRN for ALLERGIC REACTION Nitroglycerin (Nitrostat) 0.4 Mg Tab 0.4 MG UT PRN, BTL Sertraline (Zoloft) 100 Mg Tab 150 MG PO DAILY, TAB Sitagliptin-Metformin Hcl (Janumet) 1 Tab Tab 50-500 MG PO DAILY Discharge Exam Review of Systems: Constitutional: No fever, No chills, No sweats, No weight loss, No weakness , No fatigue Respiratory: No cough, No sputum, No wheezing, No shortness of breath, No dyspnea on exertion, No dyspnea at rest, No hemoptysis Cardiovascular: No chest pain, No orthopnea, No PND, No claudication Abdomen: No pain, No nausea, No vomiting, No diarrhea, No constipation Musculoskeletal: No joint pain, No muscle pain, No swelling, No calf pain Genitourinary - Male: No hematuria, No dysuria, No urinary frequency, No urinary urgency Neurologic: No memory loss, No paralysis, No weakness, No numbness/tingling Psychiatric: No depression symptoms, No anhedonism, No anxiety, No insomnia Endocrine: No fatigue, No excessive thirst Integumentary: No rash, No itch Physical Exam: General Appearance: WD/WN, no apparent distress Eyes: normal inspection, PERRL, EOMI, sclerae normal Neck: supple, no adenopathy, thyroid normal, no JVD Respiratory/Chest: chest non-tender, lungs clear, normal breath sounds, no respiratory distress Cardiovascular: no edema, no gallop, no JVD, no murmur Abdomen / GI: normal bowel sounds, non tender, soft, no organomegaly Extremities: normal inspection, no calf tenderness, normal capillary refill , no pedal edema Neurologic/Psychiatric: no motor/sensory deficits, alert, normal mood/affect , normal reflexes Skin: normal color, warm/dry, no rash Hospital Course The patient is a 66-year-old left-handed male who is visiting from out of town who complains of numbness and tingling affecting the entire left side of his body including the face, arm, and leg. He also complains of an associated feeling of left facial weakness and some clumsiness with the left hand. The symptoms began 4-5 days ago and had prominently affected the left hand initially. He had initially attributed the symptoms to possibly carpal tunnel syndrome. 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 He denies any associated change in speech. Past medical history is notable for atrial fibrillation status post ablation, type 2 diabetes mellitus, hypertension, and sleep apnea. A serum blood glucose was 204 at the time of presentation. Electrocardiogram reveals a sinus rhythm, [address] of the head was negative for hemorrhage or other definitive acute process. However, there is evidence of an age indeterminate right thalamic lacunar stroke. PT evaluated pt, OK to DC home. No swallowing deficits per speech therapy. Upon reviewing MRI, there is an area of restricted diffusion within the right thalamus/posterior limb of the internal capsule. The corresponding ADC map is dark in this area. These findings are suggestive of an acute ischemic infarct. At this point, I think aspirin 81 mg per day is appropriate. Lipid panel concerning for LDL 268. DC on ASA 81 mg in addition to atorvastatin 80 mg PO daily. Total Time Spent: Greater than 30 minutes This includes examination of the patient, discharge planning, medication reconciliation, and communication with other providers. Discharge Instructions Please refer to the electronic Patient Visit Report (Discharge Instructions) for additional information.
--- NOTE | 2017-01-25 16:51 | ECHOCARDIOGRAM REPORT ---
*NOTICE TO RECEIVING DEMOCRAT AGENCY This information is strictly Confidential and protected under [place] law. [place] law prohibits you from making any further disclosure of this information unless further disclosure is expressly permitted by the written consent of the person to whom it pertains or is authorized by law. A general authorization for the release of medical or other information is not sufficient for this purpose. Hospital accepts no responsibility if the information is made available to any other person, INCLUDING THE PATIENT. Interpretation Summary * Name: STEPHANIE PAGAN Study Date: 01/25/2017 08:06 AM * Patient Location: .2\S\S235\S\1 HR: 66 * : 1950 (M/d/yyyy) Gender: Male Height: 69 in * Age: 66 yrs Ethnicity: [place] Weight: 242 lb * Ordering Physician: Kymberly Avery * Referring Physician: Self, Referred * Performed By: Ciera Duque RCS * * Reason For Study: Stroke Like Symptoms * BSA: 2.2 m2 * Normal biventricular systolic function. * Mild concentric LVH. * Left ventricular diastolic dysfunction. * Borderline left atrial enlargement. * No significant valvular abnormalities. * No cardiac embolic source noted. No evidence of intracardiac shunt. Procedure Details * A saline contrast injection was performed to assess for cardiac shunting. * The injection was performed through an intravenous line in the right arm. * The attending nurse who injected the saline contrast was BARBARA Rebolledo. * A total of 9 cc of agitated saline was given. Left Ventricle * The left ventricle is normal in size. * There is no thrombus. * There is mild concentric left ventricular hypertrophy. * Ejection Fraction = 55-60%. * Left ventricular systolic function is normal. * A full diastolic examination was done with clinical findings of Class I diastolic dysfunction. * The left ventricular wall motion is normal. Right Ventricle * The right ventricle is normal in size and function. Atria * Borderline left atrial enlargement. * Right atrial size is normal. * Injection of contrast documented no interatrial shunt. Mitral Valve * The mitral valve is normal. * There is no mitral valve stenosis. * There is no mitral regurgitation noted. Tricuspid Valve * The tricuspid valve is normal. * There is no tricuspid stenosis. * There is trace tricuspid regurgitation. * Right ventricular systolic pressure is normal. Aortic Valve * The aortic valve is trileaflet. * The aortic valve opens well. * Aortic stenosis is absent. * No aortic regurgitation is present. Pulmonic Valve * The pulmonic valve is not well visualized. * The pulmonary valve is inadequately visualized, but the Doppler data is adequate for interpretation. * There is no pulmonic valvular stenosis. * There is no pulmonic valvular regurgitation. Great Vessels * The aortic root is normal size. MMode 2D Measurements and Calculations IVSd 1.2 cm LVIDd 5.0 cm LVIDs 3.4 cm LVPWd 1.2 cm IVS/LVPW 0.97 FS 31.9 % EDV(Teich) 118.1 ml ESV(Teich) 47.5 ml EF(Teich) 59.8 % EDV(cubed) 124.8 ml ESV(cubed) 39.4 ml EF(cubed) 68.4 % LV mass(C)d 233.4 grams LV mass(C)dI 104.2 grams/m\S\2 SV(Teich) 70.6 ml SI(Teich) 31.5 ml/m\S\2 SV(cubed) 85.4 ml SI(cubed) 38.1 ml/m\S\2 Ao root diam 3.3 cm Ao root area 8.5 cm\S\2 LA dimension 3.9 cm LA/Ao 1.2 LVOT diam 2.0 cm LVOT area 3.3 cm\S\2 LVAd ap4 38.0 cm\S\2 LVLd ap4 8.5 cm EDV(MOD-sp4) 141.0 ml LVAs ap4 24.1 cm\S\2 LVLs ap4 7.7 cm ESV(MOD-sp4) 63.1 ml EF(MOD-sp4) 55.2 % LVAd ap2 26.5 cm\S\2 LVLd ap2 7.0 cm EDV(MOD-sp2) 83.5 ml LVAs ap2 19.4 cm\S\2 LVLs ap2 6.8 cm ESV(MOD-sp2) 47.8 ml EF(MOD-sp2) 42.8 % SV(MOD-sp4) 77.9 ml SI(MOD-sp4) 34.8 ml/m\S\2 SV(MOD-sp2) 35.7 ml SI(MOD-sp2) 15.9 ml/m\S\2 Doppler Measurements and Calculations MV E max jahaira 56.8 cm/sec MV A max jahaira 88.8 cm/sec MV E/A 0.64 MV dec time 0.22 sec Ao V2 max 130.3 cm/sec Ao max PG 6.8 mmHg Ao max PG (full) 3.9 mmHg ESEQUIEL(V,A) 2.1 cm\S\2 ESEQUIEL(V,D) 2.1 cm\S\2 LV V1 max PG 2.9 mmHg LV V1 max 84.9 cm/sec TR max jahaira 127.6 cm/sec
--- NOTE | 2017-01-28 15:25 | Pharmacy Progress Note ---
Pharmacist Post D/C Phone Note The patient and/or patient healthcare representative(s) were unable to be reached for a follow-up phone call within the 72 hour time frame. Discharge counseling pharmacist contact information has already been provided to the patient should questions arise. Thank you for allowing us to be involved in the care of this patient.
== END 2017-01-25 13:10 | disposition home or self-care (01) | DRG 65 ==
LOC: C.EDB 23:17 → C.2T 01-25 02:42 → ENRESERV 01-25 02:46
PROVIDERS: ADMIT Family Medicine; ATTEND Hospitalist
DX: I63.9 Cerebral infarction, unspecified (principal); N17.9 Acute kidney failure, unspecified; I48.91 Unspecified atrial fibrillation; I10 Essential (primary) hypertension; E11.9 Type 2 diabetes mellitus without complications; F39 Unspecified mood [affective] disorder; E03.9 Hypothyroidism, unspecified; E86.0 Dehydration; Z91.14 Patient's other noncompliance with medication regimen